=== PATIENT | female | born 1985 | race Caucasian/White ===

== ENCOUNTER 2018-06-13 00:32 | Emergency (ER) | payer SELFPAY ==
[~2018-06-13] VITALS: Ht 154.9 cm; Wt 63.0 kg
[2018-06-13 00:38] VITALS: BP_SYST 123
[2018-06-13 01:08] VITALS: BP_SYST 123
== END 2018-06-13 01:08 ==
LOC: SED 00:32
DX: R06.02 Shortness of breath (principal); R03.0 Elevated blood-pressure reading, without diagnosis of hypertension; V43.52XA Car driver injured in collision with other type car in traffic accident, initial encounter; Y93.89 Activity, other specified; Y92.410 Unspecified street and highway as the place of occurrence of the external cause; Y99.8 Other external cause status
CPT/HCPCS: 99283